=== PATIENT | male | born 1965 | race Two or more races ===

== ENCOUNTER 2018-01-30 11:41 | Inpatient (IN) | payer MEDICAID ==
[~2018-01-30] VITALS: Ht 180.3 cm; Wt 98.7 kg
[~2018-01-30 11:41] MED LIST: GEMF600T3
[2018-01-30 12:43] LABS: Basophils # (auto) 0.1 uL; Basophils % (auto) 0.9 % (0.0-2.0); Eosinophils # (auto) 0.1 uL; Eosinophils % (auto) 2.3 % (0.0-7.0); Hemoglobin 16.5 g/dL (13.5-17.5); Lymphocytes # (auto) 1.5 uL; Lymphocytes % (auto) 23.2 % (10.0-50.0); Mean Corpuscular Hgb Conc. 34.4 g/dL (32.0-36.0); Mean Corpuscular Volume 90.3 fL (80.0-100.0); Monocytes # (auto) 0.7 uL; Monocytes % (auto) 10.2 % (0.0-12.0); Neutrophils % (auto) 63.4 % (37.0-80.0); Platelet Count (auto) 243 10^3/uL (140-450); Red Blood Cells 5.32 10^6/uL (4.5-5.90); Red Cell Distribution Width 12.7 % (11.8-14.3); White Blood Cell 6.4 10^3/uL (4.4-10.8)
[2018-01-30] MEDS ORDERED: SODIUM CHLORIDE 0.9% 1,000 ML IVB ONE (12:49)
[2018-01-30 12:51] LABS: Chloride 106 mmol/L (98-107); Sodium 138 mmol/L (136-145)
[2018-01-30 12:58] LABS: Albumin 3.9 g/dL (3.4-5.0); Anion Gap 10 (5-15); Aspartate Aminotransferase 22 U/L (15-37); BUN/Creatinine Ratio 13.8; Bilirubin, Total 0.4 mg/dL (0.2-1.0); Blood Urea Nitrogen 33 mg/dL (7-18); Calcium 8.8 mg/dL (8.5-10.1); Carbon Dioxide 22 mmol/L (21-32); GFR African American 37 mL/min; GFR Non-African American 31 mL/min; Glucose 65 mg/dL (74-106); Magnesium 2.7 mg/dL (1.6-2.6); Total Protein 7.2 g/dL (6.4-8.2)
[2018-01-30] MEDS ORDERED: ASPirin 81 mg TAB PO ONE (13:00)
[2018-01-30] MEDS ORDERED: SODIUM CHLORIDE 0.9% 1,000 ML IV ONE (13:00)
[2018-01-30 13:01] LABS: Potassium 4.8 mmol/L (3.5-5.1)
[2018-01-30 13:07] LABS: Alanine Aminotransferase 46 U/L (16-61); Alkaline Phosphatase 71 U/L (45-117)
[2018-01-30 13:37] LABS: INR 0.94 (0.9-1.15); Prothrombin Time 10.1 sec (9.27-12.13)
[2018-01-30] MEDS ORDERED: clonazePAM 0.5 MG TAB PO PRN (15:15)
[2018-01-30] MEDS ORDERED: MORPHINE SULFATE 4 MG/ML SYR/VIAL IV PRN (15:15)
[2018-01-30] MEDS ORDERED: ZOLPIDEM TARTRATE 5 MG TAB PO PRN (15:15)
[2018-01-30] MEDS ORDERED: NITROGLYCERIN 0.4 MG SL TAB SL PRN ×2 (15:15)
[2018-01-30] MEDS ORDERED: ONDANSETRON HCL 4 MG/2 ML VIAL IV PRN (15:15)
[2018-01-30] MEDS ORDERED: ACETAMINOPHEN 325 MG TAB PO PRN (15:15)
[2018-01-30] MEDS ORDERED: LORazepam 0.5 MG TAB PO PRN (15:15)
[2018-01-30] MEDS ORDERED: HYDROcodone-ACET 10/325MG TAB PO PRN (15:15)
[2018-01-30] MEDS ORDERED: ALUM & MAG HYDROX-SIMETH LIQ(MAALOX) 30 ML PO ONE (15:15)
[2018-01-30] MEDS ORDERED: cefTRIAXone 1GM/10ml IVPUSH 10 ML IV ONE (15:15)
[2018-01-30] MEDS: PROPRANOLOL HCL 20 MG TAB PO SCH ×2 (17:00→22:44)
[2018-01-30 17:07] LABS: Urine Bacteria NONE SEEN /hpf (None Seen); Urine Blood Negative /uL (Negative); Urine Hyaline Cast MANY /lpf (0 - 2); Urine Mucus FEW (None Seen); Urine Specific Gravity 1.015 (1.001-1.035); Urine WBC 3 /hpf (0 - 3)
[2018-01-30 17:18] VITALS: BP 97/65
[2018-01-30 17:34] VITALS: BP 106/62
[2018-01-30] MEDS: IPRATROPIUM BROM 0.5 MG/2.5ML INH SOL NEB SCH (18:13)
[2018-01-30] MEDS: ALBUTEROL SULF 2.5 MG/0.5ML(0.5%) NEB SOLN NEB SCH (18:13)
[2018-01-30] MEDS ORDERED: CARB25TA22 PO (18:53)
[2018-01-30] MEDS ORDERED: HYDR-531 PO (18:53)
[2018-01-30] MEDS ORDERED: [UNRECOGNIZED DRUG - CODE] PO (18:53)
[2018-01-30] MEDS ORDERED: GABA300C10 PO (18:53)
[2018-01-30] MEDS ORDERED: CLON1TAB4 PO (18:53)
[2018-01-30] MEDS ORDERED: PROP1CAP PO (18:53)
[2018-01-30] MEDS ORDERED: HYDR-4296 PO (18:53)
[2018-01-30] MEDS ORDERED: TIZA4CAP PO (18:53)
[2018-01-30] MEDS: MORPHINE SULF INJ 2 MG/ML SYRINGE 1ML IV PRN ×2 (20:02→21:04)
[2018-01-30 22:00] VITALS: BP 118/77
[2018-01-30] MEDS ORDERED: ATORVASTATIN 20 MG TAB PO SCH (22:00)
[2018-01-30] MEDS: SODIUM CHLOR 0.9% PF (SALINE LOCK) 10ML VIAL/SYR IV SCH (22:43)
[2018-01-30] MEDS: GABAPENTIN 300 MG CAP PO SCH (22:44)
[2018-01-30] MEDS: CARBIDOPA W LEVODOPA 25/100mg TABLET PO SCH (22:45)
[2018-01-30] MEDS: hydrALAZINE HCL 25 MG TAB PO SCH (22:46)
[2018-01-31] MEDS ORDERED: HYDROcodone-ACET 5/325MG TAB PO PRN (00:45)
[2018-01-31] MEDS ORDERED: ALBUTEROL SULF 2.5 MG/0.5ML(0.5%) NEB SOLN NEB PRN (00:45)
[2018-01-31] MEDS ORDERED: HYDROcodone-ACET 10/325MG TAB PO PRN (01:00)
[2018-01-31 05:00] VITALS: BP 110/72
[2018-01-31] MEDS: SODIUM CHLOR 0.9% PF (SALINE LOCK) 10ML VIAL/SYR IV SCH (06:12)
[2018-01-31] MEDS: CARBIDOPA W LEVODOPA 25/100mg TABLET PO SCH (06:12)
[2018-01-31] MEDS: MORPHINE SULF INJ 2 MG/ML SYRINGE 1ML IV PRN ×2 (06:20→10:58)
[2018-01-31 06:44] LABS: Basophils # (auto) 0 uL; Basophils % (auto) 0.7 % (0.0-2.0); Eosinophils # (auto) 0.1 uL; Eosinophils % (auto) 2.4 % (0.0-7.0); Hemoglobin 17.4 g/dL (13.5-17.5); Lymphocytes # (auto) 1.5 uL; Lymphocytes % (auto) 28.1 % (10.0-50.0); Mean Corpuscular Hemoglobin 31.1 pg (28.0-32.0); Mean Corpuscular Hgb Conc. 34.7 g/dL (32.0-36.0); Mean Corpuscular Volume 89.5 fL (80.0-100.0); Monocytes # (auto) 0.4 uL; Neutrophils # (auto) 3.2 uL; Neutrophils % (auto) 60.8 % (37.0-80.0); Nucleated Red Blood Cells % 0.1 %; Platelet Count (auto) 218 10^3/uL (140-450); Red Blood Cells 5.58 10^6/uL (4.5-5.90); Red Cell Distribution Width 12.7 % (11.8-14.3); White Blood Cell 5.3 10^3/uL (4.4-10.8)
[2018-01-31] MEDS: PROPRANOLOL HCL 20 MG TAB PO SCH ×2 (07:00→10:52)
[2018-01-31 07:10] LABS: Alanine Aminotransferase 16 U/L (16-61); Albumin 3.8 g/dL (3.4-5.0); Alkaline Phosphatase 72 U/L (45-117); Anion Gap 8 (5-15); Aspartate Aminotransferase 13 U/L (15-37); BUN/Creatinine Ratio 14.7; Bilirubin, Total 0.4 mg/dL (0.2-1.0); Blood Urea Nitrogen 20 mg/dL (7-18); Calcium 8.7 mg/dL (8.5-10.1); Carbon Dioxide 22 mmol/L (21-32); Chloride 110 mmol/L (98-107); Cholesterol 192 mg/dL (< 200); GFR African American 71 mL/min; GFR Non-African American 59 mL/min; Glucose 92 mg/dL (74-106); HDL Cholesterol 27 mg/dL (40-59); LDL Cholesterol 137 mg/dL (< 100); Magnesium 2.7 mg/dL (1.6-2.6); Sodium 140 mmol/L (136-145); Total Protein 7.1 g/dL (6.4-8.2); Triglycerides 247 mg/dL (< 150)
[2018-01-31] MEDS: ALBUTEROL SULF 2.5 MG/0.5ML(0.5%) NEB SOLN NEB SCH ×3 (07:55→12:09)
[2018-01-31] MEDS: IPRATROPIUM BROM 0.5 MG/2.5ML INH SOL NEB SCH ×3 (07:55→12:09)
[2018-01-31 08:00] VITALS: BP 95/56
[2018-01-31] MEDS ORDERED: cefTRIAXone 1GM/10ml IVPUSH 10 ML IV SCH (09:00)
[2018-01-31] MEDS: hydrALAZINE HCL 25 MG TAB PO SCH (09:08)
[2018-01-31 09:16] VITALS: BP 95/56
[2018-01-31] MEDS ORDERED: SODIUM CHLORIDE 0.9% 1,000 ML IV SCH (09:45)
[2018-01-31] MEDS ORDERED: DOCUSATE SOD 100 MG CAP PO SCH (10:00)
[2018-01-31] MEDS ORDERED: amLODIPine BESYLATE 5 MG TAB PO SCH (10:00)
[2018-01-31] MEDS ORDERED: CLOPIDOGREL BISULFATE 75 MG TAB PO SCH (10:00)
[2018-01-31] MEDS ORDERED: ASPirin 81 mg TAB PO SCH (10:00)
[2018-01-31] MEDS ORDERED: BENAZEPRIL HCL 10 MG TAB PO SCH (10:00)
[2018-01-31] MEDS: GABAPENTIN 300 MG CAP PO SCH (10:28)
[2018-01-31 12:37] VITALS: BP 111/64
[2018-02-01] MEDS ORDERED: NITR0.4S29 SL (14:41)
== END 2018-01-31 13:59 | disposition left against medical advice (07) | DRG 190 ==
LOC: ER 11:41 → TELE 11:42 → EAST 17:15 → TELE-EAST 17:15
PROVIDERS: ADMIT Internal Medicine; ATTEND Internal Medicine
DX: I21.9 Acute myocardial infarction, unspecified (principal); I95.9 Hypotension, unspecified; G20 Parkinson's disease; E66.01 Morbid (severe) obesity due to excess calories; E83.41 Hypermagnesemia; N18.3 Chronic kidney disease, stage 3 (moderate); I25.10 Atherosclerotic heart disease of native coronary artery without angina pectoris; J45.901 Unspecified asthma with (acute) exacerbation; R07.81 Pleurodynia; R10.9 Unspecified abdominal pain; E16.2 Hypoglycemia, unspecified; E78.5 Hyperlipidemia, unspecified; F41.9 Anxiety disorder, unspecified; I12.9 Hypertensive chronic kidney disease with stage 1 through stage 4 chronic kidney disease, or unspecified chronic kidney disease; I25.2 Old myocardial infarction; J20.9 Acute bronchitis, unspecified; Z82.49 Family history of ischemic heart disease and other diseases of the circulatory system; Z79.899 Other long term (current) drug therapy; Z88.8 Allergy status to other drugs, medicaments and biological substances; Z68.30 Body mass index [BMI] 30.0-30.9, adult
CPT/HCPCS: 36415; 71045; 74176; 80053; 80061; 81001; 82962; 83735; 83880; 84443; 84484; 85025; 85379; 85610; 85730; 93005; 93017; 94640; 96361; 96374; J0696

== ENCOUNTER 2018-01-31 19:43 | Inpatient (IN) | payer MEDICAID ==
[~2018-01-31] VITALS: Ht 180.3 cm; Wt 102.1 kg
[~2018-01-31 19:43] MED LIST changes: +CARB25TA22 PO; +CLON1TAB4 PO; +GABA300C10 PO; -GEMF600T3; +GEMF600T7; +HYDR-4296 PO; +HYDR-531 PO; +PROP1CAP PO; +TIZA4CAP PO; +[UNRECOGNIZED DRUG - CODE] PO
[2018-01-31 21:30] LABS: Basophils # (auto) 0 uL; Basophils % (auto) 0.6 % (0.0-2.0); Eosinophils # (auto) 0.1 uL; Eosinophils % (auto) 1.5 % (0.0-7.0); Hematocrit 49.1 % (41.0-53.0); Hemoglobin 16.9 g/dL (13.5-17.5); Lymphocytes # (auto) 1.7 uL; Lymphocytes % (auto) 22.9 % (10.0-50.0); Mean Corpuscular Hgb Conc. 34.5 g/dL (32.0-36.0); Mean Corpuscular Volume 89.9 fL (80.0-100.0); Monocytes # (auto) 0.6 uL; Monocytes % (auto) 7.9 % (0.0-12.0); Neutrophils # (auto) 4.9 uL; Neutrophils % (auto) 67.1 % (37.0-80.0); Nucleated Red Blood Cells % 0.2 %; Platelet Count (auto) 260 10^3/uL (140-450); Red Blood Cells 5.46 10^6/uL (4.5-5.90); Red Cell Distribution Width 12.8 % (11.8-14.3); White Blood Cell 7.2 10^3/uL (4.4-10.8)
[2018-01-31 21:45] LABS: INR 0.98 (0.9-1.15); Partial Thromboplastin Time 27.6 sec (23.78-33.04); Prothrombin Time 10.5 sec (9.27-12.13)
[2018-01-31 22:43] LABS: Anion Gap 11 (5-15); Carbon Dioxide 17 mmol/L (21-32); Chloride 109 mmol/L (98-107); Glucose 117 mg/dL (74-106); Potassium 4.5 mmol/L (3.5-5.1); Sodium 137 mmol/L (136-145)
[2018-01-31 22:44] LABS: Alanine Aminotransferase 29 U/L (16-61); Alkaline Phosphatase 85 U/L (45-117); Aspartate Aminotransferase 19 U/L (15-37); BUN/Creatinine Ratio 10.9; Bilirubin, Total 0.3 mg/dL (0.2-1.0); Blood Urea Nitrogen 24 mg/dL (7-18); Calcium 8.8 mg/dL (8.5-10.1); GFR African American 41 mL/min; GFR Non-African American 34 mL/min; Magnesium 2.4 mg/dL (1.6-2.6); Total Protein 7.4 g/dL (6.4-8.2)
[2018-01-31 22:45] LABS: Amylase 58 U/L (25-115); Lipase 88 U/L (73-393)
[2018-02-01 04:02] LABS: Urine Bacteria NONE SEEN /hpf (None Seen); Urine Blood Negative /uL (Negative); Urine Hyaline Cast FEW /lpf (0 - 2); Urine Mucus FEW (None Seen); Urine Specific Gravity 1.012 (1.001-1.035); Urine WBC 1 /hpf (0 - 3)
[2018-02-01] MEDS ORDERED: ONDANSETRON HCL 4 MG/2 ML VIAL ONE (05:21)
[2018-02-01] MEDS ORDERED: MORPHINE SULF INJ 2 MG/ML SYRINGE 1ML ONE (05:21)
[2018-02-01] MEDS ORDERED: MORPHINE SULFATE 4 MG/ML SYR/VIAL IV ONE (05:30)
[2018-02-01] MEDS ORDERED: ONDANSETRON HCL 4 MG/2 ML VIAL IV ONE (05:30)
[2018-02-01] MEDS ORDERED: ACETAMINOPHEN 500 MG TAB PO PRN (06:15)
[2018-02-01] MEDS ORDERED: LORazepam 0.5 MG TAB PO PRN (06:15)
[2018-02-01] MEDS ORDERED: NITROGLYCERIN 0.4 MG SL TAB SL PRN (06:15)
[2018-02-01 07:36] LABS: Basophils # (auto) 0.1 uL; Basophils % (auto) 1.4 % (0.0-2.0); Eosinophils # (auto) 0.2 uL; Eosinophils % (auto) 3.1 % (0.0-7.0); Hematocrit 49.7 % (41.0-53.0); Hemoglobin 17.2 g/dL (13.5-17.5); Lymphocytes # (auto) 1.9 uL; Lymphocytes % (auto) 35.8 % (10.0-50.0); Mean Corpuscular Hemoglobin 30.9 pg (28.0-32.0); Mean Corpuscular Hgb Conc. 34.6 g/dL (32.0-36.0); Mean Corpuscular Volume 89.4 fL (80.0-100.0); Monocytes # (auto) 0.6 uL; Monocytes % (auto) 11.4 % (0.0-12.0); Neutrophils # (auto) 2.6 uL; Neutrophils % (auto) 48.3 % (37.0-80.0); Nucleated Red Blood Cells % 0.1 %; Platelet Count (auto) 240 10^3/uL (140-450); Red Blood Cells 5.57 10^6/uL (4.5-5.90); Red Cell Distribution Width 12.9 % (11.8-14.3); White Blood Cell 5.4 10^3/uL (4.4-10.8)
[2018-02-01 07:44] LABS: BUN/Creatinine Ratio 13.5; Calcium 8.9 mg/dL (8.5-10.1); Potassium 4.3 mmol/L (3.5-5.1)
[2018-02-01] MEDS ORDERED: hydrALAZINE HCL 25 MG TAB PO SCH (10:00)
[2018-02-01] MEDS: GABAPENTIN 300 MG CAP PO SCH (10:28)
[2018-02-01] MEDS: MORPHINE SULF INJ 2 MG/ML SYRINGE 1ML IV PRN ×4 (10:32→23:00)
[2018-02-01] MEDS ORDERED: NITR0.4S29 SL (14:41)
[2018-02-01] MEDS: CARBIDOPA W LEVODOPA 25/100mg TABLET PO SCH ×2 (14:50→23:21)
[2018-02-01 16:53] VITALS: BP 137/77
[2018-02-01 20:00] VITALS: BP 119/64
[2018-02-01 21:59] VITALS: BP 119/64
[2018-02-02 04:51] VITALS: BP 121/75
[2018-02-02] MEDS: CARBIDOPA W LEVODOPA 25/100mg TABLET PO SCH ×3 (06:11→21:10)
[2018-02-02] MEDS: MORPHINE SULF INJ 2 MG/ML SYRINGE 1ML IV PRN ×3 (07:58→17:55)
[2018-02-02 09:00] VITALS: BP 110/71
[2018-02-02] MEDS ORDERED: ADENOSINE 85 MG in GIVE UN-DILUTED 0 ML IV ONE (09:00)
[2018-02-02] MEDS: SODIUM CHLORIDE 0.9% 1,000 ML IV SCH ×2 (11:00→21:10)
[2018-02-02 12:48] VITALS: BP 113/78
[2018-02-02] MEDS: GABAPENTIN 300 MG CAP PO SCH (13:30)
[2018-02-02] MEDS: HYDROcodone-ACET 5/325MG TAB PO PRN ×2 (16:51→21:10)
[2018-02-02 17:00] VITALS: BP 117/70
[2018-02-02] MEDS: TEMAZEPAM 15 MG CAP PO PRN ×2 (21:10)
[2018-02-02 22:00] VITALS: BP 121/71
[2018-02-03] MEDS: MORPHINE SULF INJ 2 MG/ML SYRINGE 1ML IV PRN ×3 (00:11→20:44)
[2018-02-03] MEDS: CARBIDOPA W LEVODOPA 25/100mg TABLET PO SCH ×3 (04:38→20:44)
[2018-02-03 05:00] VITALS: BP 113/71
[2018-02-03] MEDS: SODIUM CHLORIDE 0.9% 1,000 ML IV SCH ×2 (06:01→17:00)
[2018-02-03 08:17] LABS: BUN/Creatinine Ratio 16.2; Calcium 8.7 mg/dL (8.5-10.1); Potassium 4.2 mmol/L (3.5-5.1)
[2018-02-03 09:00] VITALS: BP 114/75
[2018-02-03] MEDS: GABAPENTIN 300 MG CAP PO SCH (10:14)
[2018-02-03] MEDS ORDERED: LIDOCAINE 2% (LOCAL ANESTH.) PF 5ml SDV ONE ×2 (11:39→12:48)
[2018-02-03] MEDS ORDERED: IODIXANOL 320MG/ML 100ML BTL IV ONE (11:40)
[2018-02-03] MEDS ORDERED: ANGIOMAX 250 MG VIAL IV ONE (11:49)
[2018-02-03] MEDS ORDERED: MIDAZOLAM HCL 1MG/1ML-2 ML VIAL ONE (11:50)
[2018-02-03] MEDS ORDERED: SODIUM CHL 0.9% 0 ML ONE (11:50)
[2018-02-03] MEDS ORDERED: fentaNYL CITRATE 100 MCG/2 ML VL ONE (11:50)
[2018-02-03] MEDS ORDERED: VERAPAMIL 2.5MG/ML INJ 2ML VIAL IV ONE (11:55)
[2018-02-03 14:00] VITALS: BP 108/74
[2018-02-03 17:00] VITALS: BP 127/82
[2018-02-03 21:44] VITALS: BP 125/84
[2018-02-04] MEDS: TEMAZEPAM 15 MG CAP PO PRN (00:27)
[2018-02-04] MEDS: HYDROcodone-ACET 5/325MG TAB PO PRN (00:27)
[2018-02-04] MEDS: MORPHINE SULF INJ 2 MG/ML SYRINGE 1ML IV PRN ×2 (02:34→06:40)
[2018-02-04] MEDS: SODIUM CHLORIDE 0.9% 1,000 ML IV SCH (04:55)
[2018-02-04 05:39] VITALS: BP 115/74
[2018-02-04 05:51] LABS: BUN/Creatinine Ratio 18.3; Calcium 8.4 mg/dL (8.5-10.1)
[2018-02-04] MEDS: CARBIDOPA W LEVODOPA 25/100mg TABLET PO SCH (06:40)
[2018-02-04 08:00] VITALS: BP 118/77
[2018-02-04] MEDS: GABAPENTIN 300 MG CAP PO SCH (09:10)
[2018-02-04 12:22] VITALS: BP 118/77
== END 2018-02-04 12:51 | disposition home or self-care (01) | DRG 192 ==
LOC: ER 19:43 → TELE 19:44 → TELE-WESTW 02-01 15:45
PROVIDERS: ADMIT Nurse Practitioner Family; ATTEND Internal Medicine
PROC: B2111ZZ Fluoroscopy of Multiple Coronary Arteries using Low Osmolar Contrast (ICD-10-PCS; principal; 2018-02-03)
PROC: B41J1ZZ Fluoroscopy of Other Lower Arteries using Low Osmolar Contrast (ICD-10-PCS; 2018-02-03)
PROC: 4A023N7 Measurement of Cardiac Sampling and Pressure, Left Heart, Percutaneous Approach (ICD-10-PCS; 2018-02-03)
PROC: B2151ZZ Fluoroscopy of Left Heart using Low Osmolar Contrast (ICD-10-PCS; 2018-02-03)
DX: M94.0 Chondrocostal junction syndrome [Tietze] (principal); N17.0 Acute kidney failure with tubular necrosis; I12.9 Hypertensive chronic kidney disease with stage 1 through stage 4 chronic kidney disease, or unspecified chronic kidney disease; G20 Parkinson's disease; E66.01 Morbid (severe) obesity due to excess calories; Z79.899 Other long term (current) drug therapy; E78.5 Hyperlipidemia, unspecified; E86.0 Dehydration; J98.11 Atelectasis; N18.2 Chronic kidney disease, stage 2 (mild); F41.9 Anxiety disorder, unspecified; Z68.31 Body mass index [BMI] 31.0-31.9, adult; Z88.8 Allergy status to other drugs, medicaments and biological substances; I25.2 Old myocardial infarction; Z82.49 Family history of ischemic heart disease and other diseases of the circulatory system
CPT/HCPCS: 36415; 71046; 78452; 80048; 80053; 81001; 82150; 83690; 83735; 83880; 84443; 84484; 85025; 85379; 85610; 85730; 93005; 93458; 96374; 96375; 99152; A6257; J0153; J2001; J2250; J2405; Q9967

== ENCOUNTER 2018-02-25 18:02 | Emergency (ER) | payer MEDICAID ==
[~2018-02-25] VITALS: Ht 180.3 cm; Wt 103.0 kg
[~2018-02-25 18:02] MED LIST changes: -GEMF600T7; +NITR0.4S29 SL
[2018-02-25 19:22] LABS: Basophils # (auto) 0 uL; Basophils % (auto) 0.5 % (0.0-2.0); Eosinophils # (auto) 0.1 uL; Eosinophils % (auto) 1.6 % (0.0-7.0); Hematocrit 48.1 % (41.0-53.0); Hemoglobin 16.9 g/dL (13.5-17.5); Lymphocytes # (auto) 1.1 uL; Lymphocytes % (auto) 17.7 % (10.0-50.0); Mean Corpuscular Hemoglobin 31.3 pg (28.0-32.0); Mean Corpuscular Volume 89.4 fL (80.0-100.0); Monocytes # (auto) 0.6 uL; Monocytes % (auto) 8.9 % (0.0-12.0); Neutrophils # (auto) 4.6 uL; Neutrophils % (auto) 71.3 % (37.0-80.0); Nucleated Red Blood Cells % 0.6 %; Platelet Count (auto) 212 10^3/uL (140-450); Red Blood Cells 5.39 10^6/uL (4.5-5.90); White Blood Cell 6.4 10^3/uL (4.4-10.8)
[2018-02-25 19:42] LABS: Alanine Aminotransferase 26 U/L (16-61); Albumin 4.1 g/dL (3.4-5.0); Alkaline Phosphatase 88 U/L (45-117); Anion Gap 8 (5-15); Aspartate Aminotransferase 15 U/L (15-37); BUN/Creatinine Ratio 12.4; Bilirubin, Total 0.8 mg/dL (0.2-1.0); Blood Urea Nitrogen 16 mg/dL (7-18); Calcium 9.2 mg/dL (8.5-10.1); Carbon Dioxide 23 mmol/L (21-32); Chloride 105 mmol/L (98-107); GFR African American 76 mL/min; GFR Non-African American 63 mL/min; Glucose 85 mg/dL (74-106); Magnesium 2.3 mg/dL (1.6-2.6); Potassium 3.7 mmol/L (3.5-5.1); Sodium 136 mmol/L (136-145); Total Protein 7.7 g/dL (6.4-8.2)
[2018-02-25] MEDS ORDERED: methylPREDNISolone SOD SUCC 125 MG/2 ML VL IV ONE (21:00)
[2018-02-25] MEDS ORDERED: ALBUTEROL SULF 2.5 MG/0.5ML(0.5%) NEB SOLN HHN ONE (21:00)
[2018-02-25] MEDS ORDERED: IPRATROPIUM BROM 0.5 MG/2.5ML INH SOL HHN ONE (21:00)
[2018-02-25 22:17] LABS: Urine Bacteria NONE SEEN /hpf (None Seen); Urine Blood Negative /uL (Negative); Urine Specific Gravity 1.006 (1.001-1.035); Urine WBC 1 /hpf (0 - 3)
[2018-02-25] MEDS ORDERED: IOHEXOL 350 MG/ML 100ML IJ ONE (23:55)
[2018-02-26] MEDS ORDERED: SODIUM CHLORIDE 0.9% 1,000 ML IV ONE
[2018-02-26] MEDS ORDERED: KETOROLAC TROMETH 30 MG/ML 1ML VIAL IV ONE
[2018-02-26] MEDS ORDERED: MORPHINE SULFATE 4 MG/ML SYR/VIAL IV ONE (01:30)
[2018-02-26] MEDS ORDERED: ONDANSETRON HCL 4 MG/2 ML VIAL IV ONE (01:30)
[2018-02-26] MEDS ORDERED: LORazepam 2MG/ML-1ML VIAL IV ONE (04:45)
[2018-02-26 05:45] VITALS: BP 120/88
== END 2018-02-26 05:22 | disposition home or self-care (01) ==
LOC: ER 18:02
DX: F41.9 Anxiety disorder, unspecified (principal); I12.9 Hypertensive chronic kidney disease with stage 1 through stage 4 chronic kidney disease, or unspecified chronic kidney disease; N18.9 Chronic kidney disease, unspecified; E78.5 Hyperlipidemia, unspecified; I25.2 Old myocardial infarction
CPT/HCPCS: 36415; 36600; 71046; 71275; 76705; 80053; 81001; 82805; 83605; 83735; 83880; 84484; 85025; 85379; 87040; 94640; 96374; 96375; 99285; J1885; J2060; J2270; J2405; J2930; J7030; J7611; J7644; Q9967

== ENCOUNTER 2018-03-03 18:39 | Emergency (ER) | payer MEDICAID ==
[~2018-03-03] VITALS: Ht 180.3 cm; Wt 99.8 kg
[2018-03-03 19:50] LABS: Basophils # (auto) 0.1 uL; Basophils % (auto) 0.9 % (0.0-2.0); Eosinophils # (auto) 0.1 uL; Eosinophils % (auto) 2.1 % (0.0-7.0); Hematocrit 47.6 % (41.0-53.0); Hemoglobin 16.6 g/dL (13.5-17.5); Lymphocytes # (auto) 1.3 uL; Lymphocytes % (auto) 19.1 % (10.0-50.0); Mean Corpuscular Hemoglobin 31.3 pg (28.0-32.0); Mean Corpuscular Hgb Conc. 34.8 g/dL (32.0-36.0); Mean Corpuscular Volume 89.9 fL (80.0-100.0); Monocytes # (auto) 0.5 uL; Monocytes % (auto) 7.9 % (0.0-12.0); Neutrophils # (auto) 4.9 uL; Nucleated Red Blood Cells % 0.1 %; Platelet Count (auto) 220 10^3/uL (140-450); Red Cell Distribution Width 12.9 % (11.8-14.3); White Blood Cell 6.9 10^3/uL (4.4-10.8)
[2018-03-03 20:11] LABS: Alanine Aminotransferase 25 U/L (16-61); Albumin 4.2 g/dL (3.4-5.0); Alkaline Phosphatase 87 U/L (45-117); Anion Gap 6 (5-15); Aspartate Aminotransferase 11 U/L (15-37); BUN/Creatinine Ratio 17.3; Bilirubin, Total 0.5 mg/dL (0.2-1.0); Blood Urea Nitrogen 19 mg/dL (7-18); Carbon Dioxide 21 mmol/L (21-32); Chloride 109 mmol/L (98-107); GFR African American 91 mL/min; GFR Non-African American 75 mL/min; Glucose 82 mg/dL (74-106); Magnesium 2.1 mg/dL (1.6-2.6); Potassium 4.1 mmol/L (3.5-5.1); Sodium 136 mmol/L (136-145); Total Protein 7.9 g/dL (6.4-8.2)
[2018-03-04] MEDS ORDERED: LORazepam 0.5 MG TAB PO ONE (08:15)
[2018-03-04 10:45] VITALS: BP 148/94
== END 2018-03-04 10:46 | disposition home or self-care (01) ==
LOC: ER 18:39
DX: R07.89 Other chest pain (principal); F41.9 Anxiety disorder, unspecified; I25.10 Atherosclerotic heart disease of native coronary artery without angina pectoris; E78.5 Hyperlipidemia, unspecified; I25.2 Old myocardial infarction; I12.9 Hypertensive chronic kidney disease with stage 1 through stage 4 chronic kidney disease, or unspecified chronic kidney disease; N18.9 Chronic kidney disease, unspecified; Z88.8 Allergy status to other drugs, medicaments and biological substances; Z79.899 Other long term (current) drug therapy
CPT/HCPCS: 36415; 71045; 80053; 83735; 84484; 85025; 93005

== ENCOUNTER 2018-10-08 13:24 | Inpatient (IN) | payer MEDICAID | END 2018-10-09 11:27 | disposition home or self-care (01) | LOC: ER 13:24 → TELE 16:32 → TELE-WESTW 18:10 | DX: I24.9 Acute ischemic heart disease, unspecified (principal); G20 Parkinson's disease; E78.5 Hyperlipidemia, unspecified; F41.9 Anxiety disorder, unspecified; R00.0 Tachycardia, unspecified; I16.0 Hypertensive urgency ==

== ENCOUNTER 2018-10-16 12:06 | Inpatient (IN) | payer MEDICAID | END 2018-10-22 16:45 | disposition home or self-care (01) | LOC: ER 12:06 → TELE 14:40 → TELE-EAST 16:59 | PROC: B2141ZZ Fluoroscopy of Right Heart using Low Osmolar Contrast (ICD-10-PCS; principal; ~2018-10-16) | DX: R07.9 Chest pain, unspecified (principal); G20 Parkinson's disease; R73.9 Hyperglycemia, unspecified; E66.9 Obesity, unspecified; N18.9 Chronic kidney disease, unspecified; R00.0 Tachycardia, unspecified; F41.9 Anxiety disorder, unspecified; E78.5 Hyperlipidemia, unspecified; Z68.30 Body mass index [BMI] 30.0-30.9, adult ==

== ENCOUNTER 2019-10-14 10:48 | Inpatient (IN) | payer MEDICAID ==
[~2019-10-14] VITALS: Ht 172.7 cm; Wt 103.3 kg
[2019-10-14] VITALS (8 sets, daily range): BP systolic 48–120; BP diastolic 31–61
[~2019-10-14 10:48] MED LIST changes: +ATOR20TA PO; +CARI-277 PO; -CLON1TAB4 PO; -HYDR-531 PO; -PROP1CAP PO; +PROP80CA42 PO; -TIZA4CAP PO; +ZOLP10TA PO; +[UNRECOGNIZED DRUG - CODE] PO; -[UNRECOGNIZED DRUG - CODE] PO
[2019-10-14] MEDS ORDERED: SODIUM CHLORIDE 0.9% 1,000 ML IVB ONE (11:02)
[2019-10-14] MEDS ORDERED: NALOXONE HCL 1MG/ML 2ML SYRINGE IV ONE (11:15)
[2019-10-14 11:40] LABS: Basophils # (auto) 0 10 ^3/uL (0-0.2); Basophils % (auto) 0.6 % (0.0-2.0); Eosinophils # (auto) 0.1 10 ^3/uL (0-0.8); Hematocrit 45.9 % (41.0-53.0); Hemoglobin 15.7 g/dL (13.5-17.5); Lymphocytes # (auto) 0.8 10 ^3/uL (0.4-5.4); Lymphocytes % (auto) 10.3 % (10.0-50.0); Mean Corpuscular Hemoglobin 31.6 pg (28.0-32.0); Mean Corpuscular Hgb Conc. 34.1 g/dL (32.0-36.0); Mean Corpuscular Volume 92.5 fL (80.0-100.0); Monocytes # (auto) 0.7 10 ^3/uL (0-1.3); Monocytes % (auto) 9.3 % (0.0-12.0); Neutrophils # (auto) 6.2 10 ^3/uL (1.6-8.6); Neutrophils % (auto) 78.8 % (37.0-80.0); Nucleated Red Blood Cells % 0.1 %; Platelet Count (auto) 171 10^3/uL (140-450); Red Blood Cells 4.96 10^6/uL (4.5-5.90); Red Cell Distribution Width 12.8 % (11.8-14.3); White Blood Cell 7.9 10^3/uL (4.4-10.8)
[2019-10-14 11:48] LABS: Blood Urea Nitrogen 38 mg/dL (7-18); Calcium 7.9 mg/dL (8.5-10.1); Chloride 106 mmol/L (98-107); Potassium 4.9 mmol/L (3.5-5.1); Salicylate < 1.7 mg/dL (2.8-20.0); Sodium 134 mmol/L (136-145)
[2019-10-14 11:50] LABS: Acetaminophen < 2.0 ug/mL (10-30)
[2019-10-14 11:54] LABS: Alanine Aminotransferase 11 U/L (16-61); Albumin 3.2 g/dL (3.4-5.0); Alkaline Phosphatase 65 U/L (45-117); Anion Gap 9 (5-15); Aspartate Aminotransferase 13 U/L (15-37); BUN/Creatinine Ratio 9.1; Bilirubin, Total 0.9 mg/dL (0.2-1.0); Blood Alcohol < 3.0 mg/dL (0-5); Carbon Dioxide 19 mmol/L (21-32); GFR African American 19 mL/min; GFR Non-African American 16 mL/min; Glucose 116 mg/dL (74-106); Total Protein 6.2 g/dL (6.4-8.2)
[2019-10-14] MEDS ORDERED: SODIUM CHLORIDE 0.9% 1,000 ML IV ONE (13:00)
[2019-10-14] MEDS ORDERED: NOREPINEPHRINE 8 MG/250ML KIT 250 ML IV ONE (13:18)
[2019-10-14] MEDS ORDERED: GLUCAGON HYDROCHLORIDE (RDNA) 1 MG VIAL IV ONE (13:45)
[2019-10-14] MEDS ORDERED: DOPamine 1600MCG/ML D5W 250 ML IV ONE (13:45)
[2019-10-14] MEDS: NOREPINEPHRINE 8 MG/250ML KIT 250 ML IV SCH (13:56)
[2019-10-14] MEDS ORDERED: CALCIUM CHL 100MG/ML 1,000 MG in D5W 5% 100 ML IV ONE (14:15)
[2019-10-14] MEDS ORDERED: NITROGLYCERIN 0.4 MG SL TAB SL PRN (15:30)
[2019-10-14] MEDS: DOPamine 1600MCG/ML D5W 250 ML IV SCH ×2 (18:01→23:29)
[2019-10-15] VITALS (75 sets, daily range): BP systolic 77–111; BP diastolic 38–73
[2019-10-15] MEDS: NOREPINEPHRINE 8 MG/250ML KIT 250 ML IV SCH ×2 (04:00→22:16)
[2019-10-15 04:34] LABS: Basophils # (auto) 0 10 ^3/uL (0-0.2); Basophils % (auto) 0.3 % (0.0-2.0); Eosinophils # (auto) 0 10 ^3/uL (0-0.8); Eosinophils % (auto) 0.1 % (0.0-7.0); Lymphocytes # (auto) 0.5 10 ^3/uL (0.4-5.4); Monocytes # (auto) 0.8 10 ^3/uL (0-1.3)
[2019-10-15 04:36] LABS: Hematocrit 52.2 % (41.0-53.0); Lymphocytes % (auto) 4.9 % (10.0-50.0); Mean Corpuscular Hemoglobin 31.8 pg (28.0-32.0); Mean Corpuscular Hgb Conc. 34.5 g/dL (32.0-36.0); Mean Corpuscular Volume 92.1 fL (80.0-100.0); Monocytes % (auto) 7.8 % (0.0-12.0); Neutrophils # (auto) 8.5 10 ^3/uL (1.6-8.6); Neutrophils % (auto) 86.9 % (37.0-80.0); Nucleated Red Blood Cells % 0.7 %; Platelet Count (auto) 213 10^3/uL (140-450); Red Blood Cells 5.67 10^6/uL (4.5-5.90); Red Cell Distribution Width 12.9 % (11.8-14.3); White Blood Cell 9.8 10^3/uL (4.4-10.8)
[2019-10-15 04:55] LABS: Albumin 3.3 g/dL (3.4-5.0); BUN/Creatinine Ratio 11.5; Calcium 8.6 mg/dL (8.5-10.1); Potassium 5.1 mmol/L (3.5-5.1)
[2019-10-15 04:58] LABS: Bilirubin, Total 1.2 mg/dL (0.2-1.0); Total Protein 6.7 g/dL (6.4-8.2)
[2019-10-15] MEDS: DOPamine 1600MCG/ML D5W 250 ML IV SCH (07:13)
[2019-10-15] MEDS ORDERED: ATORVASTATIN 20 MG TAB PO SCH (10:00)
[2019-10-15] MEDS: CARBIDOPA W LEVODOPA 25/100mg TABLET PO SCH ×2 (14:00→22:05)
[2019-10-15 15:32] LABS: % Iron Saturation 11.2 % (20-55)
[2019-10-15] MEDS ORDERED: MORPHINE SULF INJ 2 MG/ML SYRINGE 1ML ONE (17:51)
[2019-10-15] MEDS: MORPHINE SULF INJ 2 MG/ML SYRINGE 1ML IV PRN ×2 (18:06→22:07)
[2019-10-15] MEDS: ATORVASTATIN 20 MG TAB PO SCH (22:05)
[2019-10-15] MEDS: PRAMIPEXOLE DIHYDROCHLORIDE MO 0.25 MG TAB PO SCH (22:06)
[2019-10-15] MEDS ORDERED: CARBIDOPA W LEVODOPA 25/100mg TABLET PO ONE (22:30)
[2019-10-15] MEDS ORDERED: ATORVASTATIN 20 MG TAB PO ONE (22:30)
[2019-10-16] VITALS (62 sets, daily range): BP systolic 81–126; BP diastolic 46–87
[2019-10-16] MEDS: MORPHINE SULF INJ 2 MG/ML SYRINGE 1ML IV PRN ×2 (04:05→09:59)
[2019-10-16] MEDS ORDERED: SODIUM CHLORIDE 0.9% 1,000 ML IV SCH (08:30)
[2019-10-16] MEDS: SODIUM CHLORIDE 0.9% 1,000 ML IV SCH ×2 (09:16→20:00)
[2019-10-16 09:18] LABS: Urine Bacteria NONE SEEN /hpf (None Seen); Urine Blood TRACE /uL (Negative); Urine Hyaline Cast FEW /lpf (0 - 2); Urine Mucus FEW (None Seen); Urine Specific Gravity 1.017 (1.001-1.035); Urine WBC 22 /hpf (0 - 3)
[2019-10-16 09:25] LABS: Basophils # (auto) 0.1 10 ^3/uL (0-0.2); Basophils % (auto) 1.1 % (0.0-2.0); Eosinophils # (auto) 0.1 10 ^3/uL (0-0.8); Eosinophils % (auto) 1.1 % (0.0-7.0); Hematocrit 50.3 % (41.0-53.0); Hemoglobin 16.9 g/dL (13.5-17.5); Lymphocytes # (auto) 0.7 10 ^3/uL (0.4-5.4); Lymphocytes % (auto) 12.1 % (10.0-50.0); Mean Corpuscular Hemoglobin 31.3 pg (28.0-32.0); Mean Corpuscular Hgb Conc. 33.7 g/dL (32.0-36.0); Mean Corpuscular Volume 92.9 fL (80.0-100.0); Monocytes # (auto) 0.4 10 ^3/uL (0-1.3); Monocytes % (auto) 7.7 % (0.0-12.0); Neutrophils # (auto) 4.3 10 ^3/uL (1.6-8.6); Nucleated Red Blood Cells % 0.1 %; Platelet Count (auto) 174 10^3/uL (140-450); Red Blood Cells 5.41 10^6/uL (4.5-5.90); Red Cell Distribution Width 12.8 % (11.8-14.3); White Blood Cell 5.6 10^3/uL (4.4-10.8)
[2019-10-16 09:27] LABS: Alcohol, Urine < 3.0 mg/dL (0-5); Amphetamine Screen, Urine NEGATIVE (NEGATIVE); Barbiturate Scree,Urine NEGATIVE (NEGATIVE); Benzodiazephine Screen, Urine POSITIVE (NEGATIVE); Cannabinoid Screen, Urine NEGATIVE (NEGATIVE); Cocaine Screen, Urine NEGATIVE (NEGATIVE); Opiate Scree,Urine NEGATIVE (NEGATIVE); Phencyclidine Screen, Urine NEGATIVE (NEGATIVE)
[2019-10-16 09:46] LABS: Calcium 9.1 mg/dL (8.5-10.1); Potassium 4.4 mmol/L (3.5-5.1)
[2019-10-16 09:48] LABS: BUN/Creatinine Ratio 15.9
[2019-10-16] MEDS: CARBIDOPA W LEVODOPA 25/100mg TABLET PO SCH ×2 (13:21→21:57)
[2019-10-16] MEDS: PRAMIPEXOLE DIHYDROCHLORIDE MO 0.25 MG TAB PO SCH (21:57)
[2019-10-16] MEDS: ATORVASTATIN 20 MG TAB PO SCH (21:57)
[2019-10-17] VITALS (7 sets, daily range): BP systolic 109–164; BP diastolic 72–95
[2019-10-17] MEDS: MORPHINE SULF INJ 2 MG/ML SYRINGE 1ML IV PRN ×2 (00:47→05:55)
[2019-10-17] MEDS: CARBIDOPA W LEVODOPA 25/100mg TABLET PO SCH ×3 (05:42→23:17)
[2019-10-17] MEDS: SODIUM CHLORIDE 0.9% 1,000 ML IV SCH ×2 (14:55→22:15)
[2019-10-17] MEDS ORDERED: ALPR1TAB7 PO (17:07)
[2019-10-17] MEDS ORDERED: IBUP600T27 PO (17:07)
[2019-10-17] MEDS ORDERED: PROP80CA40 PO (17:07)
[2019-10-17] MEDS ORDERED: TIZA4CAP PO (17:07)
[2019-10-17] MEDS ORDERED: ZOLP10TA6 PO (17:07)
[2019-10-17] MEDS ORDERED: GABA300C10 PO (17:07)
[2019-10-17] MEDS ORDERED: AMLO10CA33 PO (17:20)
[2019-10-17] MEDS ORDERED: ACET-1156 PO (17:21)
[2019-10-17] MEDS ORDERED: LORazepam 2MG/ML-1ML VIAL IV PRN (17:30)
[2019-10-17] MEDS ORDERED: LABETALOL HCL 5 MG/ML 4ML SYRINGE IV PRN (18:30)
[2019-10-17] MEDS: ATORVASTATIN 20 MG TAB PO SCH (22:00)
[2019-10-17] MEDS: PRAMIPEXOLE DIHYDROCHLORIDE MO 0.25 MG TAB PO SCH (23:17)
[2019-10-18 05:23] VITALS: BP 139/92
[2019-10-18] MEDS: CARBIDOPA W LEVODOPA 25/100mg TABLET PO SCH ×2 (06:31→14:00)
[2019-10-18 09:19] VITALS: BP 148/97
[2019-10-18] MEDS: SODIUM CHLORIDE 0.9% 1,000 ML IV SCH (10:45)
[2019-10-18] MEDS: MORPHINE SULF INJ 2 MG/ML SYRINGE 1ML IV PRN (11:35)
[2019-10-18 12:43] VITALS: BP 151/99
[2019-10-18 14:12] VITALS: BP 151/99
== END 2019-10-18 18:36 | disposition home health service (06) | DRG 812 ==
LOC: EDBD 10:48 → ER 10:48 → TELE 10:49 → ICU WEST 20:05 → TELE-WESTW 10-17 00:34
PROVIDERS: ADMIT Internal Medicine; ATTEND Internal Medicine
DX: T42.4X1A Poisoning by benzodiazepines, accidental (unintentional), initial encounter (principal); N17.0 Acute kidney failure with tubular necrosis; G92 Toxic encephalopathy; G20 Parkinson's disease; I95.9 Hypotension, unspecified; M48.02 Spinal stenosis, cervical region; R45.851 Suicidal ideations; T44.7X1A Poisoning by beta-adrenoreceptor antagonists, accidental (unintentional), initial encounter; I25.10 Atherosclerotic heart disease of native coronary artery without angina pectoris; E78.5 Hyperlipidemia, unspecified; G47.00 Insomnia, unspecified; I12.9 Hypertensive chronic kidney disease with stage 1 through stage 4 chronic kidney disease, or unspecified chronic kidney disease; R00.1 Bradycardia, unspecified; E86.0 Dehydration; M77.9 Enthesopathy, unspecified; M47.812 Spondylosis without myelopathy or radiculopathy, cervical region; F41.9 Anxiety disorder, unspecified; E78.00 Pure hypercholesterolemia, unspecified; G25.81 Restless legs syndrome; N18.9 Chronic kidney disease, unspecified; Z82.49 Family history of ischemic heart disease and other diseases of the circulatory system; Z79.899 Other long term (current) drug therapy; I25.2 Old myocardial infarction; Z88.8 Allergy status to other drugs, medicaments and biological substances; Z90.49 Acquired absence of other specified parts of digestive tract; Z84.89 Family history of other specified conditions
CPT/HCPCS: 36415; 70450; 71045; 76705; 80048; 80053; 80307; 80320; 80329; 81001; 82728; 83540; 83550; 85025; 87081; 93005; 95819; 96361; 96365; 96367; 96368; 96375; 97116; 97163; 97530; G0378; J3490; J7060

== ENCOUNTER 2019-11-28 00:04 | Emergency (ER) | payer MEDICAID ==
[~2019-11-28] VITALS: Ht 177.8 cm; Wt 99.8 kg
[~2019-11-28 00:04] MED LIST changes: +ACET-1156 PO; +ALPR1TAB7 PO; +AMLO10CA33 PO; -CARI-277 PO; -HYDR-4296 PO; +IBUP600T27 PO; -NITR0.4S29 SL; +PROP80CA40 PO; -PROP80CA42 PO; +TIZA4CAP PO; -ZOLP10TA PO; +ZOLP10TA6 PO; -[UNRECOGNIZED DRUG - CODE] PO
[2019-11-28 00:40] LABS: Basophils # (auto) 0.1 10 ^3/uL (0-0.2); Basophils % (auto) 1.4 % (0.0-2.0); Eosinophils # (auto) 0.1 10 ^3/uL (0-0.8); Eosinophils % (auto) 0.8 % (0.0-7.0); Hematocrit 49.4 % (41.0-53.0); Hemoglobin 17.1 g/dL (13.5-17.5); Lymphocytes # (auto) 1.5 10 ^3/uL (0.4-5.4); Lymphocytes % (auto) 16.4 % (10.0-50.0); Mean Corpuscular Hemoglobin 31.7 pg (28.0-32.0); Mean Corpuscular Hgb Conc. 34.7 g/dL (32.0-36.0); Mean Corpuscular Volume 91.4 fL (80.0-100.0); Monocytes # (auto) 0.7 10 ^3/uL (0-1.3); Monocytes % (auto) 7.3 % (0.0-12.0); Neutrophils # (auto) 6.9 10 ^3/uL (1.6-8.6); Neutrophils % (auto) 74.1 % (37.0-80.0); Nucleated Red Blood Cells % 0.1 %; Platelet Count (auto) 236 10^3/uL (140-450); Red Cell Distribution Width 12.9 % (11.8-14.3); White Blood Cell 9.3 10^3/uL (4.4-10.8)
[2019-11-28 00:56] LABS: INR 1.13 (0.9-1.15); Partial Thromboplastin Time 27.2 sec (23.64-32.05)
[2019-11-28 01:00] LABS: Albumin 3.8 g/dL (3.4-5.0); Anion Gap 12 (5-15); BUN/Creatinine Ratio 14.4; Blood Urea Nitrogen 22 mg/dL (7-18); Calcium 8.5 mg/dL (8.5-10.1); Carbon Dioxide 23 mmol/L (21-32); Chloride 103 mmol/L (98-107); GFR African American 62 mL/min; GFR Non-African American 51 mL/min; Glucose 144 mg/dL (74-106); Magnesium 2.1 mg/dL (1.6-2.6); Potassium 3.5 mmol/L (3.5-5.1); Sodium 138 mmol/L (136-145)
[2019-11-28 01:04] LABS: Alanine Aminotransferase 34 U/L (16-61); Alkaline Phosphatase 72 U/L (45-117); Aspartate Aminotransferase 21 U/L (15-37); Bilirubin, Total 1.1 mg/dL (0.2-1.0); Total Protein 7.2 g/dL (6.4-8.2)
[2019-11-28 05:00] VITALS: BP 129/68
[2019-11-28] MEDS ORDERED: HYDROcodone-ACET 5/325MG TAB PO ONE (05:15)
== END 2019-11-28 06:11 | disposition home or self-care (01) ==
LOC: EDBD 00:04 → ER 00:08
DX: K52.9 Noninfective gastroenteritis and colitis, unspecified (principal); R07.89 Other chest pain; G20 Parkinson's disease; I25.10 Atherosclerotic heart disease of native coronary artery without angina pectoris; I12.9 Hypertensive chronic kidney disease with stage 1 through stage 4 chronic kidney disease, or unspecified chronic kidney disease; N18.9 Chronic kidney disease, unspecified; I25.2 Old myocardial infarction
CPT/HCPCS: 36415; 71045; 74176; 80053; 83735; 83880; 84443; 84484; 85025; 85379; 85610; 85730; 93005

== ENCOUNTER 2022-02-26 13:22 | Emergency (ER) | payer MEDICAID ==
[~2022-02-26] VITALS: Ht 152.4 cm; Wt 60.0 kg
[~2022-02-26 13:22] MED LIST changes: -CARB25TA22 PO; +CARB25TA79 PO
[2022-02-26 13:48] VITALS: BP 130/69
[2022-02-26 14:51] LABS: Basophils # (auto) 0.1 10 ^3/uL (0-0.2); Basophils % (auto) 0.9 % (0.0-2.0); Eosinophils # (auto) 0.1 10 ^3/uL (0-0.8); Eosinophils % (auto) 1.6 % (0.0-7.0); Hematocrit 49.5 % (41.0-53.0); Hemoglobin 16.5 g/dL (13.5-17.5); Lymphocytes # (auto) 1.2 10 ^3/uL (0.4-5.4); Lymphocytes % (auto) 20.8 % (10.0-50.0); Mean Corpuscular Hemoglobin 29.6 pg (28.0-32.0); Mean Corpuscular Hgb Conc. 33.4 g/dL (32.0-36.0); Mean Corpuscular Volume 88.6 fL (80.0-100.0); Monocytes # (auto) 0.5 10 ^3/uL (0-1.3); Monocytes % (auto) 8.8 % (0.0-12.0); Neutrophils % (auto) 67.9 % (37.0-80.0); Nucleated Red Blood Cells % 0.1 %; Red Blood Cells 5.58 10^6/uL (4.5-5.90); Red Cell Distribution Width 13.9 % (11.8-14.3); White Blood Cell 5.9 10^3/uL (4.4-10.8)
[2022-02-26 14:53] LABS: Albumin 4.1 g/dL (3.4-5.0); Calcium 9.1 mg/dL (8.5-10.1); Potassium 4.4 mmol/L (3.5-5.1)
[2022-02-26 14:56] LABS: BUN/Creatinine Ratio 23.9; Bilirubin, Total 0.6 mg/dL (0.2-1.0); Total Protein 7.3 g/dL (6.4-8.2)
[2022-02-26] MEDS ORDERED: ASPirin 81 mg TAB PO ONE (19:15)
== END 2022-02-26 20:32 | disposition home or self-care (01) ==
LOC: ER 13:22
DX: R07.89 Other chest pain (principal); I12.9 Hypertensive chronic kidney disease with stage 1 through stage 4 chronic kidney disease, or unspecified chronic kidney disease; N18.9 Chronic kidney disease, unspecified; I25.10 Atherosclerotic heart disease of native coronary artery without angina pectoris; I25.2 Old myocardial infarction; E78.5 Hyperlipidemia, unspecified; Z90.49 Acquired absence of other specified parts of digestive tract; Z79.899 Other long term (current) drug therapy; Z79.1 Long term (current) use of non-steroidal anti-inflammatories (NSAID); Z88.8 Allergy status to other drugs, medicaments and biological substances
CPT/HCPCS: 36415; 71046; 80053; 83735; 83880; 84484; 85025; 93005

== ENCOUNTER 2022-07-17 14:55 | Emergency (ER) | payer MEDICAID ==
[~2022-07-17] VITALS: Ht 180.3 cm; Wt 106.5 kg
[2022-07-17] MEDS ORDERED: LIDOCAINE 1% HCL (LOCAL ANESTH.) INJ 20ML MDV IJ ONE (17:15)
[2022-07-17] MEDS ORDERED: TETANUS-DIPTH-ACEL PERTUSSIS 0.5ML SYR Tdap IM ONE (17:15)
[2022-07-17 17:36] VITALS: BP 118/83
== END 2022-07-17 18:18 | disposition home or self-care (01) ==
LOC: ER 14:55
DX: S61.210A Laceration without foreign body of right index finger without damage to nail, initial encounter (principal); I12.9 Hypertensive chronic kidney disease with stage 1 through stage 4 chronic kidney disease, or unspecified chronic kidney disease; N18.9 Chronic kidney disease, unspecified; I25.10 Atherosclerotic heart disease of native coronary artery without angina pectoris; I25.2 Old myocardial infarction; E78.5 Hyperlipidemia, unspecified; Z90.49 Acquired absence of other specified parts of digestive tract; Z79.1 Long term (current) use of non-steroidal anti-inflammatories (NSAID); Z79.899 Other long term (current) drug therapy; Z88.8 Allergy status to other drugs, medicaments and biological substances; W26.8XXA Contact with other sharp object(s), not elsewhere classified, initial encounter; Y93.89 Activity, other specified; Y92.89 Other specified places as the place of occurrence of the external cause; Y99.8 Other external cause status
CPT/HCPCS: 12001; 90471; 90715; 99283; J2001

== ENCOUNTER 2023-02-20 15:18 | Emergency (ER) | payer MEDICAID ==
[~2023-02-20] VITALS: Ht 180.3 cm; Wt 112.2 kg
[~2023-02-20 15:18] MED LIST changes: -ACET-1156 PO; +ACET-1881 PO; -AMLO10CA33 PO; +AMLO1CAP56 PO; +GABA-1250 PO; -GABA300C10 PO; +IBUP-1454 PO; -IBUP600T27 PO
[2023-02-20 15:57] LABS: Basophils # (auto) 0 10 ^3/uL (0-0.2); Eosinophils # (auto) 0.1 10 ^3/uL (0-0.8); Hematocrit 52.5 % (41.0-53.0); Hemoglobin 18.2 g/dL (13.5-17.5); Lymphocytes # (auto) 1.3 10 ^3/uL (0.4-5.4); Mean Corpuscular Hemoglobin 31.2 pg (28.0-32.0); Mean Corpuscular Hgb Conc. 34.7 g/dL (32.0-36.0); Monocytes # (auto) 0.5 10 ^3/uL (0-1.3)
[2023-02-20 15:59] LABS: Basophils % (auto) 0.8 % (0.0-2.0); Eosinophils % (auto) 2.3 % (0.0-7.0); Lymphocytes % (auto) 21.4 % (10.0-50.0); Mean Corpuscular Volume 89.9 fL (80.0-100.0); Monocytes % (auto) 8.9 % (0.0-12.0); Neutrophils # (auto) 3.9 10 ^3/uL (1.6-8.6); Neutrophils % (auto) 66.6 % (37.0-80.0); Nucleated Red Blood Cells % 0.2 %; Red Blood Cells 5.84 10^6/uL (4.5-5.90); Red Cell Distribution Width 12.7 % (11.8-14.3); White Blood Cell 5.9 10^3/uL (4.4-10.8)
[2023-02-20 16:14] LABS: Alanine Aminotransferase 37 U/L (7-40); Albumin 4.7 g/dL (3.2-4.8); Alkaline Phosphatase 76 U/L (46-116); Anion Gap 8 (5-15); Aspartate Aminotransferase 12 U/L (13-40); BUN/Creatinine Ratio 15.3 (10.0-20.0); Bilirubin, Total 0.6 mg/dL (0.2-1.0); Blood Urea Nitrogen 17 mg/dL (9-23); Calcium 9.8 mg/dL (8.7-10.4); Carbon Dioxide 22 mmol/L (20-30); Chloride 107 mmol/L (98-107); Glucose 98 mg/dL (74-106); Potassium 4.6 mmol/L (3.5-5.1); Sodium 137 mmol/L (136-145)
[2023-02-20] MEDS ORDERED: ASPirin-EC 325mg tab PO ONE (16:15)
[2023-02-20 16:22] LABS: INR 1.02 (0.9-1.15); Partial Thromboplastin Time 26.8 SEC (24.5-34.5); Prothrombin Time 10.7 sec (9.3-11.8)
[2023-02-20 18:35] VITALS: BP 144/105; RESP 19; TEMP 97.3; O2SAT 97
[2023-02-20 18:49] VITALS: PULSE 85
[2023-02-20 19:37] LABS: COVID19 ANTIGEN SOFIA FIA NEGATIVE (NEGATIVE); Rapid Influenza A Negative (Negative); Rapid Influenza B Negative (Negative)
== END 2023-02-20 21:53 | disposition left against medical advice (07) ==
LOC: ER 15:18
DX: R07.89 Other chest pain (principal); D75.1 Secondary polycythemia
CPT/HCPCS: 36415; 71045; 80053; 83690; 83880; 84484; 85025; 85610; 85730; 87426; 87804; 93005

== ENCOUNTER 2023-11-03 18:25 | Inpatient (IN) | payer MEDICAID ==
[~2023-11-03] VITALS: Ht 180.3 cm; Wt 108.0 kg
[2023-11-03 19:24] LABS: Basophils # (auto) 0.1 10 ^3/uL (0-0.2); Basophils % (auto) 1.6 % (0.0-2.0); Eosinophils # (auto) 0.1 10 ^3/uL (0-0.8); Eosinophils % (auto) 1.2 % (0.0-7.0); Hematocrit 47.1 % (41.0-53.0); Hemoglobin 16.4 g/dL (13.5-17.5); Lymphocytes # (auto) 1.6 10 ^3/uL (0.4-5.4); Lymphocytes % (auto) 26.4 % (10.0-50.0); Mean Corpuscular Hemoglobin 31.2 pg (28.0-32.0); Mean Corpuscular Hgb Conc. 34.8 g/dL (32.0-36.0); Mean Corpuscular Volume 89.6 fL (80.0-100.0); Monocytes # (auto) 0.5 10 ^3/uL (0-1.3); Monocytes % (auto) 8.5 % (0.0-12.0); Neutrophils # (auto) 3.7 10 ^3/uL (1.6-8.6); Neutrophils % (auto) 62.3 % (37.0-80.0); Nucleated Red Blood Cells % 0.3 %; Red Blood Cells 5.26 10^6/uL (4.5-5.90)
[2023-11-03] MEDS: NITROGLYCERIN 2% OINT 1GM PKG TD ONE (19:30)
[2023-11-03] MEDS: ASPirin-EC 325mg tab PO ONE (19:33)
[2023-11-03] MEDS: MORPHINE SULFATE 4 MG/ML SYR/VIAL IV ONE ×2 (19:33→23:45)
[2023-11-03 19:43] LABS: Alanine Aminotransferase 29 U/L (7-40); Albumin 4.3 g/dL (3.2-4.8); Alkaline Phosphatase 85 U/L (46-116); Anion Gap 6 (5-15); Aspartate Aminotransferase 11 U/L (13-40); BUN/Creatinine Ratio 11.6 (10.0-20.0); Blood Urea Nitrogen 14 mg/dL (9-23); Calcium 9.3 mg/dL (8.7-10.4); Carbon Dioxide 21 mmol/L (20-30); Chloride 111 mmol/L (98-107); Glucose 104 mg/dL (74-106); Potassium 3.5 mmol/L (3.5-5.1); Sodium 138 mmol/L (136-145)
[2023-11-03 19:44] LABS: Bilirubin, Total 0.7 mg/dL (0.2-1.0); Total Protein 6.4 g/dL (5.7-8.2)
[2023-11-03 20:02] LABS: Triglycerides 133 mg/dL (< 150)
[2023-11-03 20:03] LABS: LDL Cholesterol 132 mg/dL (< 100)
[2023-11-03 20:04] LABS: Cholesterol 177 mg/dL (< 200); HDL Cholesterol 27 mg/dL (40-59)
[2023-11-03] MEDS ORDERED: HEPARIN SODIUM (PORCINE) 5000 UNITS/ML 1ML VIAL IV ONE (20:30)
[2023-11-03] MEDS: IOHEXOL 350 MG/ML 100ML IJ ONE (20:58)
[2023-11-03] MEDS: HEPARIN DRIP/D5W 100UNITS/ML 250 ML IV SCH (21:00)
[2023-11-03] MEDS ORDERED: TEMAZEPAM 15 MG CAP PO PRN (21:15)
[2023-11-03] MEDS ORDERED: ACETAMINOPHEN 325 MG TAB PO PRN (21:15)
[2023-11-03] MEDS ORDERED: ONDANSETRON HCL 4 MG/2 ML VIAL IV PRN (21:15)
[2023-11-03] MEDS ORDERED: NITROGLYCERIN 0.4 MG SL TAB SL PRN (21:15)
[2023-11-03 21:22] LABS: INR 1.03 (0.9-1.15); Partial Thromboplastin Time 26.8 SEC (24.5-34.5); Prothrombin Time 10.9 sec (9.3-11.8)
[2023-11-03] MEDS: hydrALAZINE HCL 25 MG TAB PO SCH (22:00)
[2023-11-04] VITALS (8 sets, daily range): BP systolic 101–119; BP diastolic 59–79; PULSE 65–104; RESP 16–22; TEMP 97.6–99; O2SAT 97–100
[2023-11-04] MEDS: CARBIDOPA W LEVODOPA 25/100mg TABLET PO SCH (01:46)
[2023-11-04] MEDS: ATORVASTATIN 20 MG TAB PO SCH (01:47)
[2023-11-04] MEDS ORDERED: TIZA1TAB20 PO (03:45)
[2023-11-04] MEDS ORDERED: PROP1TAB51 PO (03:45)
[2023-11-04] MEDS ORDERED: FURO40TA4 PO (03:45)
[2023-11-04] MEDS ORDERED: DICL1GEL73 TOP (03:45)
[2023-11-04] MEDS ORDERED: NAP500T PO (03:45)
[2023-11-04] MEDS ORDERED: ATOR40TA52 PO (03:45)
[2023-11-04] MEDS ORDERED: POTA-228 PO (03:45)
[2023-11-04] MEDS ORDERED: SERT-206 PO (03:45)
[2023-11-04] MEDS: MORPHINE SULFATE INJ 2 MG/ml SYRG IV PRN (05:27)
[2023-11-04 07:48] LABS: Chloride 106 mmol/L (98-107); Potassium 3.6 mmol/L (3.5-5.1); Sodium 136 mmol/L (136-145)
[2023-11-04 07:49] LABS: Anion Gap 5 (5-15); Calcium 9.1 mg/dL (8.5-10.1); Carbon Dioxide 25 mmol/L (20-30)
[2023-11-04 07:54] LABS: BUN/Creatinine Ratio 9.9 (10.0-20.0); Blood Urea Nitrogen 11 mg/dL (9-23); Glucose 131 mg/dL (74-106)
[2023-11-04 08:02] LABS: INR 1.03 (0.9-1.15); Partial Thromboplastin Time 27.9 SEC (24.5-34.5); Prothrombin Time 10.9 sec (9.3-11.8)
[2023-11-04] MEDS: SERTRALINE HCL 50 MG TAB PO SCH (09:06)
[2023-11-04] MEDS: amLODIPine BESYLATE 5 MG TAB PO SCH (09:07)
[2023-11-04] MEDS: ASPirin 81 mg TAB PO SCH (09:08)
[2023-11-04] MEDS: FUROSEMIDE 40 MG TAB PO SCH (09:08)
[2023-11-04] MEDS: BENAZEPRIL HCL 10 MG TAB PO SCH (09:08)
[2023-11-04] MEDS: ENOXAPARIN SOD 40 MG/0.4 ML SYRINGE SC SCH (09:09)
[2023-11-04] MEDS ORDERED: HYDR50TA47 PO (16:06)
[2023-11-05] VITALS (7 sets, daily range): BP systolic 99–114; BP diastolic 63–74; PULSE 55–80; RESP 16–19; TEMP 36.6; O2SAT 96–99
== END 2023-11-05 19:46 | disposition home or self-care (01) | DRG 198 ==
LOC: EDBD 18:25 → ER 18:25 → EDSEX 18:25 → TELE 21:30 → TELE-WESTW 11-04 03:28
PROVIDERS: ADMIT Nurse Practitioner; ATTEND Internal Medicine Geriatric Medicine
DX: R07.89 Other chest pain (principal); I25.119 Atherosclerotic heart disease of native coronary artery with unspecified angina pectoris; G20.A1 Parkinson's disease without dyskinesia, without mention of fluctuations; E66.9 Obesity, unspecified; E78.5 Hyperlipidemia, unspecified; F41.9 Anxiety disorder, unspecified; I25.2 Old myocardial infarction; Z88.8 Allergy status to other drugs, medicaments and biological substances; Z79.899 Other long term (current) drug therapy; Z83.3 Family history of diabetes mellitus; Z82.49 Family history of ischemic heart disease and other diseases of the circulatory system; Z82.3 Family history of stroke; Z68.32 Body mass index [BMI] 32.0-32.9, adult
CPT/HCPCS: 36415; 71045; 71275; 80048; 80053; 80061; 83036; 84484; 85025; 85610; 85730; 93005; 93306; 96374; 96375; G0378